=== PATIENT | female | born 1975 | race Caucasian/White ===

== ENCOUNTER 2018-02-24 14:23 | Inpatient (IN) | payer OTHER ==
[2018-02-24] MEDS ORDERED: ARMOUR THYROID60 M1 PO (14:56)
== END 2018-03-05 11:51 | DRG 743 ==
LOC: SURG-SUITE 03-03 06:57 → O/R 03-03 06:57 → SURG-SUITE 03-03 13:16 → SURH 03-03 15:15 → SURG-SUITE 03-05 11:51
PROVIDERS: Obstetrics & Gynecology Gynecologic Oncology
PROC: 0DNW4ZZ Release Peritoneum, Percutaneous Endoscopic Approach (ICD-10-PCS; 2018-03-03)
PROC: 0UT74ZZ Resection of Bilateral Fallopian Tubes, Percutaneous Endoscopic Approach (ICD-10-PCS; 2018-03-03)
PROC: 0UT24ZZ Resection of Bilateral Ovaries, Percutaneous Endoscopic Approach (ICD-10-PCS; 2018-03-03)
PROC: 0TN74ZZ Release Left Ureter, Percutaneous Endoscopic Approach (ICD-10-PCS; 2018-03-03)
PROC: 0UT94ZZ Resection of Uterus, Percutaneous Endoscopic Approach (ICD-10-PCS; principal; 2018-03-03 16:30)
DX: N80.0 Endometriosis of uterus (principal); N80.1 Endometriosis of ovary; N80.2 Endometriosis of fallopian tube; N72 Inflammatory disease of cervix uteri; N73.6 Female pelvic peritoneal adhesions (postinfective); E03.8 Other specified hypothyroidism; I10 Essential (primary) hypertension; R19.4 Change in bowel habit

== ENCOUNTER 2018-03-01 07:35 | Day surgery (SDC) | payer OTHER ==
[~2018-03-01 07:35] MED LIST: ARMOUR THYROID60 M1 PO
== END 2018-03-01 12:25 | disposition home or self-care (01) ==
LOC: AMB-ENDOS 07:35
DX: K64.8 Other hemorrhoids (principal)

== ENCOUNTER 2020-05-13 09:48 | Outpatient (CLI) | payer OTHER | END 2020-05-13 09:55 | disposition home or self-care (01) | LOC: LAB 09:48 | PROVIDERS: ATTEND General Practice | DX: J11.1 Influenza due to unidentified influenza virus with other respiratory manifestations (principal); L04.0 Acute lymphadenitis of face, head and neck; H92.01 Otalgia, right ear ==